=== PATIENT | male | born 1980 | race Caucasian/White ===

== ENCOUNTER 2018-08-29 09:18 | Emergency (ER) | payer OTHER, SELFPAY ==
[2018-08-29] VITALS (30 sets, daily range): BP systolic 119–154; BP diastolic 62–87; PULSE 76–99; RESP 9–16; TEMP 37.1; O2SAT 93–97
--- NOTE | 2018-08-29 09:29 | DI.RAD_ITS ---
SYMPTOMS/DIAGNOSIS: RT SHOULDER PAIN, HX ROTATOR CUFF INJURY RIGHT SHOULDER: Five views. No acute fracture or dislocation is seen. The soft tissues are unremarkable. IMPRESSION: No acute abnormality. PA AND LATERAL CHEST: No priors. The heart is normal in size. The lungs are clear. The mediastinal structures and pleura appear intact. IMPRESSION: Normal chest.
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
[2018-08-29 09:44] LABS: Abs Immature Grans 0.01 k/cumm (0.0-0.09); Absolute Basophil Count 0.04 k/cumm (0.0-0.2); Absolute Eosinophil Count 0.36 k/cumm (0.0-0.7); Absolute Neutrophil Count 3.07 k/cumm (1.2-6.7); Basophils % 0.6; Eosinophils % 5.2; HCT 49.8 % (40.0-50.0); HGB 17.5 g/dL (13.5-17.5); Immature Grans % 0.1; Lymphocytes % 40.7; Mean Corp. HGB Concentration 35.1 g/dL (32.0-36.0); Mean Corpuscular Hemoglobin 29.8 pg (27.0-33.0); Mean Corpuscular Volume 84.8 fL (80-95); Mean Platelet Volume 9.9 fL (8.0-11.0); Monocytes % 8.7; Neutrophils % 44.7; Platelet Count 232 x1000/uL (130-400); RBC 5.87 m/cumm (4.50-6.00); RBC Distribution Width 12.7 % (11.8-14.1); White Blood Cell Count 6.88 k/cumm (4.4-10.8)
[2018-08-29 10:03] LABS: ALT 40 U/L (12-78); AST 31 U/L (15-37); Alkaline Phosphatase 52 U/L (46-116); Anion Gap 10.8 mmol/L (3-11); BUN 26 mg/dL (7-18); Bilirubin, Total 0.7 mg/dL (0.2-1.0); CO2 26.2 mmol/L (21.0-32.0); CREATININE 1.26 mg/dL (0.70-1.30); Calcium 8.9 mg/dL (8.5-10.1); Chloride 99 mmol/L (98-107); Glucose 103 mg/dL (70-100); Lipase 203 U/L (73-393); Potassium 3.8 mmol/L (3.5-5.1); Sodium 136 mmol/L (136-145); Total Protein 7.4 g/dL (6.4-8.2)
[2018-08-29] MEDS: Lidocaine 5% Patch 1 PATCH TP (11:21)
[2018-08-29] MEDS: Acetaminophen 500 MG TAB 1000 MG PO (11:27)
[2018-08-29] MEDS: Meclizine 25 MG TAB PO (12:19)
== END 2018-08-29 12:57 | disposition home or self-care (01) ==
PROVIDERS: Emergency Provider Student in an Organized Health Care Education/Training Program
DX: S06.0X0A Concussion without loss of consciousness, initial encounter (principal); M25.511 Pain in right shoulder; G89.29 Other chronic pain; V68.5XXA Driver of heavy transport vehicle injured in noncollision transport accident in traffic accident, initial encounter
CPT/HCPCS: 36415; 80053; 83690; 99284; 70450; 71046; 72125; 72128; 72131; 73030; 85025